=== PATIENT | female | born 1980 ===

== ENCOUNTER 2020-08-25 10:38 | Emergency (ER) | payer SELFPAY ==
[2020-08-25 10:40] VITALS: BP 124/92; PULSE 105; RESP 17; TEMP 35.9; O2SAT 100; BMI 23.6
== END 2020-08-25 11:19 | disposition left against medical advice (07) ==
LOC: ED 11:14
PROVIDERS: Emergency Provider Emergency Medicine
DX: Z53.21 Procedure and treatment not carried out due to patient leaving prior to being seen by health care provider (principal)